=== PATIENT | male | born 1990 | race African-American/Black ===

== ENCOUNTER 2018-08-22 10:37 | Emergency (ER) | payer OTHER, SELFPAY ==
[2018-08-22 12:10] LABS: Bilirubin Negative (Negative); Blood, Urine Negative (Negative); Clarity CLEAR (Clear); Glucose, Urine (Dipstick) Negative (Negative); Leukocyte Small (Negative); Nitrite Negative (Negative); Protein, Urine (Dipstick) Trace mg/dL (Neg-Trace); Specific Gravity, Urine 1.021 (1.002-1.036)
[2018-08-22 12:12] LABS: Bacteria/HPF None Seen HPF (None Seen); Hyaline Casts/LPF 0-3 HYALINE CAST LPF (0-3 Hyaline); Pathc Cast-AUWi Flag 0.14 (0-2.49); Squamous Epithelial 0-3 HPF (0-3); WBC/HPF 0-3 HPF (0-3)
[2018-08-22 12:24] LABS: RBC/HPF 0-3 HPF (0-3)
[2018-08-22 12:28] LABS: #Eosinphils 0.1 thou/uL (0.0-0.7); #Lymphocytes 1.5 thou/uL (1.20-3.40); #Monocytes 0.7 thou/uL (0.11-0.59); #Neutrophils 6.9 thou/uL (1.40-6.50); %Basophils 0.5 % (0.0-1.0); %Eosinophils 0.7 % (0.0-10.0); %Monocytes 7.8 % (0.0-10.0); Hemoglobin 13.6 g/dL (14.0-18.0); Mean Corpuscular HGB CONC 32.5 g/dL (32.0-36.0); Mean Corpuscular Volume 86.4 fL (78.0-98.0); Mean Platelet Volume 6.9 fL (7.4-10.4); Platelet Count 300 thou/uL (130-400); Red Blood Cell (RBC) Count 4.85 mill/uL (4.70-6.10); White Blood Cell (WBC) Count 9.3 thou/uL (4.8-10.8)
[2018-08-22 12:48] LABS: ALT (SGPT) 28 U/L (8-55); AST (SGOT) 31 U/L (5-34); Alkaline Phosphatase 98 U/L (40-150); Anion Gap 12 mmol/L (10-20); BUN (Urea Nitrogen) 10 mg/dL (8.9-20.6); Bilirubin, Total 0.8 mg/dL (0.2-1.2); Calc. Creatinine Clearance 0 mL/min (70-130); Calcium 9.6 mg/dL (7.8-10.44); Carbon Dioxide 26 mmol/L (22-29); Chloride 103 mmol/L (98-107); Estimated GFR-MDRD Greater than 90; Glucose 108 mg/dL (70-105); Potassium 4.1 mmol/L (3.5-5.1); Sodium 137 mmol/L (136-145)
--- NOTE | 2018-08-22 15:01 | RAD ---
TWO VIEWS CHEST: Comparison: 04-14-17 History: Dyspnea. FINDINGS: Two views of the chest show normal sized cardiomediastinal silhouette. There is no evidence of consol idation, mass, or pleural effusion. The bones are unremarkable. IMPRESSION: No evidence of acute cardiopulmonary disease. POS: [facility]
== END 2018-08-22 14:21 | disposition home or self-care (01) ==
LOC: ERS 10:37
DX: A77.0 Spotted fever due to Rickettsia rickettsii (principal); J45.909 Unspecified asthma, uncomplicated; F17.210 Nicotine dependence, cigarettes, uncomplicated
CPT/HCPCS: 36415; 36416; 71046; 80053; 81003; 81015; 85025; 85652; 86140; 93005

== ENCOUNTER 2019-08-09 22:00 | Emergency (ER) | payer SELFPAY | END 2019-08-09 23:07 | disposition left against medical advice (07) | LOC: ERS 22:00 | DX: Z53.21 Procedure and treatment not carried out due to patient leaving prior to being seen by health care provider (principal) ==

== ENCOUNTER 2019-08-11 13:21 | Emergency (ER) | payer SELFPAY ==
[2019-08-11] MEDS ORDERED: Lidocaine 4% Cream 5 GM TUBE w/ Tegaderm ONE (14:24)
[2019-08-11] MEDS ORDERED: Lidocaine 1% (PF) 30 ML VIAL ONE (14:32)
[2019-08-11] MEDS ORDERED: Morphine 4 MG/ML VIAL ONE (15:05)
[2019-08-11] MEDS ORDERED: cefTRIAXone\\ROCEPHIN 1 GM VIAL ONE (15:59)
== END 2019-08-11 14:10 | disposition home or self-care (01) ==
LOC: ERS 13:21
DX: K61.0 Anal abscess (principal); J45.909 Unspecified asthma, uncomplicated; F17.210 Nicotine dependence, cigarettes, uncomplicated
CPT/HCPCS: 96372; 99283; J0696; J2001; J2270

== ENCOUNTER 2020-01-26 11:26 | Emergency (ER) | payer OTHER, SELFPAY ==
[~2020-01-26 11:26] MED LIST: Iopamidol-370 76% 500 ML 1 ML ONE
[2020-01-26] MEDS ORDERED: methylPREDNISolone Sod Succ/PF 125 MG/2 ML VIAL ONE (13:18)
[2020-01-26] MEDS ORDERED: Ketorolac Tromethamine 30 MG/ML VIAL ONE (13:18)
[2020-01-26 13:24] LABS: #Basophils 0.1 thou/uL (0.0-0.2); #Eosinphils 0.1 thou/uL (0.0-0.7); #Lymphocytes 2.3 thou/uL (1.20-3.40); #Monocytes 1.2 thou/uL (0.11-0.59); #Neutrophils 10.4 thou/uL (1.40-6.50); %Basophils 0.5 % (0.0-1.0); %Eosinophils 0.4 % (0.0-10.0); %Lymphocytes 16.7 % (21.0-51.0); %Monocytes 8.4 % (0.0-10.0); %Neutrophils 74.1 % (42.0-75.0); Mean Corpuscular HGB CONC 31.5 g/dL (32.0-36.0); Mean Corpuscular Volume 88.9 fL (78.0-98.0); Mean Platelet Volume 8.6 fL (7.4-10.4); Platelet Count 216 thou/uL (130-400); RBC Distribution Width 12.6 % (11.5-14.5); Red Blood Cell (RBC) Count 5.72 mill/uL (4.70-6.10)
[2020-01-26 13:47] LABS: ALT (SGPT) 13 U/L (8-55); AST (SGOT) 27 U/L (5-34); Albumin 4.5 g/dL (3.5-5.0); Alkaline Phosphatase 72 U/L (40-110); Anion Gap 15 mmol/L (10-20); BUN (Urea Nitrogen) 13 mg/dL (8.9-20.6); Bilirubin, Total 1.4 mg/dL (0.2-1.2); Calc. Creatinine Clearance 0 mL/min (70-130); Calcium 9.6 mg/dL (7.8-10.44); Carbon Dioxide 23 mmol/L (22-29); Chloride 98 mmol/L (98-107); Estimated GFR-MDRD 80; Globulin 4.6 g/dL (2.4-3.5); Glucose 93 mg/dL (70-105); Potassium 4.6 mmol/L (3.5-5.1); Protein, Total 9.1 g/dL (6.0-8.3); Sodium 131 mmol/L (136-145)
--- NOTE | 2020-01-26 14:00 | CT ---
CT neck soft tissues with contrast: 01/26/2020 HISTORY: 29-year-old male with sore throat FINDINGS: The cervical spine is essentially normal. No destructive osseous lesion. Bilateral tympanomastoid cav ities, and the sphenoid, ethmoid, and maxillary sinuses, are grossly clear. Diffuse enlargement of adenoids. Enlargement of bilateral faucial tonsils with tiger stripe pattern. No peritonsillar abscess identified. Diffuse mild fat stranding in the superficial subcutaneous fat a round the lower jaw. Numerous shotty cervical lymph nodes at levels 1A, 1B, and level 2. Additionally, asymmetrically greater enlargement of the left level 2A lymph node 2.5 x 1.5 x 2.5 cm. No retropharyngeal abscess. Other than mild edema, and the cervical lymphadenopathy, no additional significant abnormality is himanshu ntified involving the submandibular, sublingual, parotid, carotid, perivertebral, imaging science professor, parapharyngeal, and posterior cervical, spaces. Lung apices are grossly clear. Larynx is normal. No thyroid pathology identified. IMPRESSION: 1. Bilateral palatine tonsillitis.. 2. Hyperplasia of the adenoids. 3. Mild superficial soft tissue edema around the lower jaw, and nonspecific mild (probably reactive) cervical lymphadenopathy.
[2020-01-26 22:23] LABS: SARS-CoV-2 MS2 Positive; SARS-CoV-2 N Gene Negative; SARS-CoV-2 S Gene Negative; SARS-CoV-2 orf1ab Negative
== END 2020-01-26 15:02 | disposition home or self-care (01) ==
LOC: ERS 11:26
DX: J02.9 Acute pharyngitis, unspecified (principal); J45.909 Unspecified asthma, uncomplicated; F17.210 Nicotine dependence, cigarettes, uncomplicated; Z20.828 Contact with and (suspected) exposure to other viral communicable diseases
CPT/HCPCS: 70491; 80053; 85025; 87081; 87430; 87635; 96372; 96374; 96375; J1885; J2930; Q9967; U0003

== ENCOUNTER 2020-01-28 15:32 | Observation (INO) | payer SELFPAY ==
[~2020-01-28 15:32] MED LIST changes: +Iopamidol 370 76% 100 ML VIAL ONE; -Iopamidol-370 76% 500 ML 1 ML ONE
[2020-01-28] MEDS ORDERED: Acetaminophen 500 MG TAB ONE (16:08)
[2020-01-28] MEDS ORDERED: cefTRIAXone\\ROCEPHIN 2 GM VIAL ONE (16:08)
[2020-01-28] MEDS ORDERED: Ketorolac Tromethamine 30 MG/ML VIAL ONE (16:08)
[2020-01-28 16:39] LABS: MONO NEGATIVE CONTROL ZONE White (Negative) (White); MONO POSITIVE CONTROL Pink Line (Positive) (PINK/RED); Mononucleosis NEGATIVE (NEGATIVE)
--- NOTE | 2020-01-28 17:00 | CT ---
CT NECK SOFT TISSUES WITH CONTRAST: 01/28/2020 HISTORY: 29-year-old male with severe sore throat. COMPARISON: 01/26/2020 FINDINGS: The enlarged bilateral faucial tonsils, with tiger stripe pattern, consistent with tonsillitis, have become larger, such that now day contact each other at midline (kissing tonsils). No peritonsillar abscess identified. The previously described cervical lymphadenopathy is again demonstrated, including the largest left l evel 2A lymph node measuring approximately 2.5 x 1.5 x 2.5 cm, unchanged. There is no retropharyngeal abscess. Interval worsening of thickening and heterogeneous enhancement of lingual tonsil (base of tongue). Hy perplasia and enhancement of the adenoids is either unchanged or minimally worse. There has been no other interval change. Larynx is normal. IMPRESSION: 1.) Diffuse inflammatory or infectious process involving Waldeyer's ring (lingual tonsil, adenoids, a nd palatine tonsils) stenosis, has become worse, especially the palatine tonsillitis. 2) no abscess identified.
[2020-01-28] MEDS ORDERED: Clindamycin/D5W 900 mg/50 ml Premix Bag ONE (17:13)
[2020-01-28 17:31] LABS: #Basophils 0.1 thou/uL (0.0-0.2); #Eosinphils 0.1 thou/uL (0.0-0.7); #Lymphocytes 2.3 thou/uL (1.20-3.40); #Monocytes 1.4 thou/uL (0.11-0.59); #Neutrophils 6.3 thou/uL (1.40-6.50); %Basophils 0.6 % (0.0-1.0); %Eosinophils 0.5 % (0.0-10.0); %Lymphocytes 23.1 % (21.0-51.0); %Monocytes 13.5 % (0.0-10.0); %Neutrophils 62.3 % (42.0-75.0); Hemoglobin 15.1 g/dL (14.0-18.0); Mean Corpuscular Hemoglobin 28.1 pg (27.0-31.0); Mean Corpuscular Volume 87.7 fL (78.0-98.0); Mean Platelet Volume 8.6 fL (7.4-10.4); Platelet Count 222 thou/uL (130-400); RBC Distribution Width 12.5 % (11.5-14.5); Red Blood Cell (RBC) Count 5.39 mill/uL (4.70-6.10); White Blood Cell (WBC) Count 10.1 thou/uL (4.8-10.8)
[2020-01-28 17:34] LABS: ALT (SGPT) 11 U/L (8-55); AST (SGOT) 13 U/L (5-34); Albumin 4.1 g/dL (3.5-5.0); Alkaline Phosphatase 58 U/L (40-110); Anion Gap 10 mmol/L (10-20); BUN (Urea Nitrogen) 11 mg/dL (8.9-20.6); Bilirubin, Total 0.5 mg/dL (0.2-1.2); Calc. Creatinine Clearance 0 mL/min (70-130); Calcium 9.4 mg/dL (7.8-10.44); Carbon Dioxide 28 mmol/L (22-29); Chloride 101 mmol/L (98-107); Estimated GFR-MDRD Greater than 90; Globulin 3.7 g/dL (2.4-3.5); Glucose 78 mg/dL (70-105); Potassium 3.7 mmol/L (3.5-5.1); Protein, Total 7.8 g/dL (6.0-8.3); Sodium 135 mmol/L (136-145)
[2020-01-28] MEDS ORDERED: Acetaminophen 650 MG Suppository PR PRN (17:58)
[2020-01-28] MEDS ORDERED: Acetaminophen 325 MG TAB PO PRN (17:58)
--- NOTE | 2020-01-28 19:23 | HP ---
TIME OF ASSESSMENT: 1700 hours. CHIEF COMPLAINT: Sore throat, worsening despite on oral antibiotics. HISTORY OF PRESENT ILLNESS: Mr. Ivy is a 29-year-old gentleman, who presents with worsening pain in his throat due to known strep throat infection. The patient states he first began to feel unwell last Saturday on January 22. The patient waited to seek medical attention until 2 days ago on Saturday. He was given oral antibiotics, and states initially, he felt better, but since Saturday has had worsening pain and swelling with persistent sweats and low-grade temperatures at home. The patient states he has had frequent infections for the last 4 years. Reports having underlying asthma, and in the last year, has required his inhalers more frequently than normal. At present, he denies having any shortness of breath or chest pain. Denies any stridor. Denies any difficulty with swallowing, but states his oral intake has been reduced due to pain with swallowing. Since receiving analgesics in the emergency department, he states he is feeling much better in regard to the pain and would like to attempt to eat. He is otherwise without any complaints. PAST MEDICAL HISTORY: 1. Asthma. 2. Recurrent strep throat infections. PAST SURGICAL HISTORY: None. SOCIAL HISTORY: The patient lives with his family. He reports smoking a half a pack a day and reports occasional marijuana use. Denies any other drug use or any heavy alcohol consumption. FAMILY HISTORY: Noncontributory. ALLERGIES: NO KNOWN DRUG ALLERGIES. CURRENT MEDICATIONS: Ibuprofen 800 mg p.o. q.8 hours as needed for pain. PHYSICAL EXAMINATION: GENERAL: The patient appears well developed, well nourished, in no acute distress. He is resting comfortably on a stretcher. VITAL SIGNS: Temperature 99.1, pulse 79, blood pressure 122/75, respirations 17 , O2 saturation 96% on room air. HEENT: Normocephalic and atraumatic. Pupils are equal, round, and reactive to light. Scleral icterus. Oropharynx shows moist mucous membranes. Tonsils, slightly enlarged bilaterally with slight amount of erythema and exudates present bilaterally. No obstruction of airway. Voice, normal. No drooling. NECK: Cervical lymphadenopathy present. Trachea, midline. No nuchal rigidity. CARDIAC: Regular rate and rhythm. LUNGS: Notable for a couple of expiratory wheezes at the bilateral bases. No crackles. ABDOMEN: Soft, nontender, and nondistended. Normoactive bowel sounds present. No guarding or rigidity. No renal angle tenderness. EXTREMITIES: No lower leg swelling or edema. NEUROLOGIC: Alert and oriented x3. SKIN: Warm and dry. LABORATORY DATA: White blood count 10.1, hemoglobin 15.1, hematocrit 47.2, neutrophils 62.3, platelets 222. Sodium 135, potassium 3.7, BUN 11, creatinine 1.15, GFR greater than 90, glucose 78. Lactic acid 0.6. LFTs, unremarkable. [place] screen, negative. Throat swab, pending. IMAGING DATA: CT of the neck soft tissue demonstrated diffuse inflammatory or infectious process involving Waldeyer's ring. Stenosis has become more, especially at palatine tonsillitis. No abscess identified. IMPRESSION AND PLAN: Mr. Ivy is a very pleasant 29-year-old gentleman, who returns to the emergency department after failing outpatient treatment for infectious pharyngitis and is being admitted for management of the following. 1. Pharyngitis. Culture obtained. He was receiving oral PCN, with symptoms worsening and has developed low-grade temperatures with sweats. He has been started on IV antibiotics, which we will continue. Consultation has been placed to Dr. Moe of Infectious Disease. Per ED physician, consultation will be placed to ENT for the morning. He will continue low-dose steroids 4 mg p.o. q.i.d., to help with swelling. No evidence of airway compromise at this present time. We will continue IV fluids. 2. Asthma. The patient has occasional expiratory wheezes at the bilateral bases; therefore, we will restart his home inhalers and order p.r.n. DuoNeb. He is breathing comfortably at present without any complaints. 3. Gastrointestinal prophylaxis with famotidine. 4. Deep venous thrombosis prophylaxis with mechanical sequential compression devices. The patient is ambulatory. 5. Code status is full. Surrogate decision maker is his mother, Lurdes Ivy. Case was discussed with Dr. Peters, who agrees with plan of care as described above. Job ID: [id number] [facility]TD[facility]
--- NOTE | 2020-01-28 19:34 | PDOC.EVN ---
Event Note - Event Note Event Note: Chart reviewed. Pt seen. Discussed with KITTY Jessie Lopez. VSS Tonsillar enlargement, exudates. S1, S2, reg Lungs CTA 29 yo man dc from ER 2 days ago with penicillin for suspected strep grp A infection now presenting with worsening symptoms. Pt has been started on ceftriaxone, add clindamycin. ENT/ID consulted.
[2020-01-28] MEDS: Sodium Chloride 0.9% 1,000 ML IV SCH (20:13)
[2020-01-28] MEDS: Famotidine 20 MG TAB PO SCH (20:19)
[2020-01-28] MEDS: Dexamethasone 4 MG TAB PO SCH (20:19)
[2020-01-28 20:32] VITALS: BMI 22.4
[2020-01-29] MEDS: Clindamycin/D5W 900 MG in Premix Bag 1 BAG IVPB SCH ×3 (02:19→17:14)
[2020-01-29 04:59] LABS: #Lymphocytes 1.4 thou/uL (1.20-3.40); #Monocytes 0.7 thou/uL (0.11-0.59); #Neutrophils 6.3 thou/uL (1.40-6.50); %Basophils 0.1 % (0.0-1.0); %Eosinophils 0.1 % (0.0-10.0); %Lymphocytes 16.7 % (21.0-51.0); %Monocytes 8.6 % (0.0-10.0); %Neutrophils 74.5 % (42.0-75.0); Hemoglobin 14.3 g/dL (14.0-18.0); Mean Corpuscular HGB CONC 33.1 g/dL (32.0-36.0); Mean Corpuscular Hemoglobin 29.2 pg (27.0-31.0); Mean Corpuscular Volume 88.2 fL (78.0-98.0); Mean Platelet Volume 7.8 fL (7.4-10.4); Platelet Count 226 thou/uL (130-400); RBC Distribution Width 12.2 % (11.5-14.5); Red Blood Cell (RBC) Count 4.91 mill/uL (4.70-6.10); White Blood Cell (WBC) Count 8.5 thou/uL (4.8-10.8)
[2020-01-29 05:23] LABS: Anion Gap 10 mmol/L (10-20); BUN (Urea Nitrogen) 9 mg/dL (8.9-20.6); Calc. Creatinine Clearance 132 mL/min (70-130); Calcium 8.9 mg/dL (7.8-10.44); Carbon Dioxide 25 mmol/L (22-29); Chloride 106 mmol/L (98-107); Estimated GFR-MDRD Greater than 90; Glucose 105 mg/dL (70-105); Potassium 4.1 mmol/L (3.5-5.1); Sodium 137 mmol/L (136-145)
[2020-01-29] MEDS: Famotidine 20 MG TAB PO SCH ×2 (08:06→20:31)
[2020-01-29] MEDS: Dexamethasone 4 MG TAB PO SCH ×3 (08:07→17:14)
[2020-01-29] MEDS: Sodium Chloride 0.9% 1,000 ML IV SCH (12:12)
[2020-01-29] MEDS ORDERED: cefTRIAXone\\ROCEPHIN 2 GM in Sodium Chloride 0.9% 100 ML IVPB SCH (16:00)
--- NOTE | 2020-01-29 17:43 | CON ---
DATE OF CONSULTATION: 01/29/2020 REASON FOR CONSULTATION: Pharyngitis with recurrence. HISTORY OF PRESENT ILLNESS: A 29-year-old who has had recurrent episodes of pharyngitis, presumably due to group A Streptococcus for the past 2 or 3 years. Apparently, he has had diagnosis a tonsillitis and was considering removal of the tonsils and then he gets admitted again. At this time, there is a proven culture with group A strep and he has been receiving ceftriaxone and clindamycin with improvement. He is feeling better. There is no headaches or visual symptoms. Sore throat is improved. He is able to swallow. No cough, sputum production, or chest pain. No abdominal pain or diarrhea. No genitourinary symptoms. No joint symptoms. PAST MEDICAL HISTORY: Pharyngitis, recurrent. SOCIAL HISTORY: He smokes daily and uses marijuana intermittently. No cocaine or meth. No IV drug use. Lives with family in the area. Does not have a steady job. ALLERGIES: NONE. CURRENT MEDCATIONS: 1. Ceftriaxone. 2. Clindamycin. 3. Pepcid. FAMILY HISTORY: Noncontributory. PHYSICAL EXAMINATION: VITAL SIGNS: T-max 99.6, BP 120/70, and pulse 75. SKIN: Normal. The patient has cervical lymphadenopathy, bilateral submandibular. HEENT: Ocular movements conjugate. Oral cavity with evidence of tonsillar enlargement and abscesses in the crypts. Dental exam normal. NECK: Supple. LUNGS: Symmetric, clear breath sounds. HEART: Normal. ABDOMEN: Soft, not distended or tender. No ascites. No bladder distention. EXTREMITIES: No joint inflammatory activity. NEUROLOGIC: Nonfocal. LABORATORY DATA: [place] screen negative. White cell count is 10.1 and 8.5, fairly normal differential. Creatinine 0.99. Liver profile normal. Albumin 4.1. Positive group A strep culture from 01/25. ASSESSMENT: Refractory recurrent group A strep infections with tonsillitis. DISCUSSION: Most likely the patient has abscesses within the tonsils and will need to have them removed. Penicillin by itself has sometimes difficulty in eradication of group A strep in the tonsils. Part of it has to do with concomitant beta-lactamase producing organisms, so I would advise discharge planning with oral clindamycin for a total of 10 days and follow up with ENT. Check HIV and RPR before discharge. Job ID: [id number] [facility]
[2020-01-29 19:02] LABS: HIV (1/2) Antibody/Antigen Non-Reactive (NonReactive); HIV 1/2 INDEX 0.07 S/CO (<1.00)
--- NOTE | 2020-01-29 19:10 | PRG ---
DATE OF SERVICE: 01/29/2020 SUBJECTIVE: A 29-year-old male with recent diagnosis of strep throat, presented to the hospital with a sore throat. He is currently admitted with a diagnosis of acute tonsillitis. He was started on ceftriaxone along with clindamycin and Decadron. No fever or chills at this time. Symptomatically, he feels much better. REVIEW OF SYSTEMS: All other review of systems was reviewed and was found negative. PHYSICAL EXAMINATION: VITAL SIGNS: Temperature 99.6, pulse of 69, respirations of 14, blood pressure of 117/72, and O2 saturation 96% on room air. GENERAL: A 29-year-old male, in no apparent distress. LUNGS: Clear to auscultation bilaterally. No wheezing, rales, or rhonchi. HEART: S1 and S2 present. Regular rate and rhythm. No rubs or gallops. ABDOMEN: Soft and nontender. Bowel sounds present. No rebound or guarding. EXTREMITIES: No edema or calf tenderness. NEUROLOGIC: Grossly nonfocal. PSYCHIATRIC: Alert, awake, and oriented x3. IMAGING STUDIES: Telemetry monitoring showed sinus rhythm. LABORATORY FINDINGS: CBC showed WBC 8.5 with hemoglobin 14.3, hematocrit 43.3, and platelet of 226. [place] screen was negative. Recent group A Streptococcus culture came back positive. Soft tissue neck CT by my review showed diffuse inflammation. HEENT examination showed tonsillar exudate. IMPRESSION: 1. Group A strep infection with tonsillitis. 2. Mild intermittent asthma. 3. Hyponatremia. 4. Tobacco dependence. 5. Occasional cannabis abuse. PLAN: The patient will be transferred to medical floor. Steroids will be discontinued. We will continue IV antibiotics. We will await Infectious Disease input. The patient was counseled on lifestyle modification including tobacco cessation. We will discontinue IV fluids if tolerating p.o. Discharge planning. Job ID: [id number]
[2020-01-29 19:13] LABS: Syphilis Antibody Index 3.48 S/CO (<1.00 Non-Reactive)
[2020-01-29 21:18] LABS: Syphilis Antibody INDETERMINATE (Nonreactive)
[2020-01-30] MEDS: Clindamycin/D5W 900 MG in Premix Bag 1 BAG IVPB SCH ×2 (00:22→08:21)
[2020-01-30 08:21] VITALS: BP 120/69; TEMP 97.8
[2020-01-30] MEDS: Famotidine 20 MG TAB PO SCH (08:21)
--- NOTE | 2020-01-30 18:43 | DIS ---
DATE OF ADMISSION: 01/28/2020 DATE OF DISCHARGE: 01/30/2020 DISCHARGE DIAGNOSES: 1. Group A Streptococcus pharyngitis/tonsillitis. 2. Tobacco use. 3. Hyponatremia, mild, resolved. 4. Cannabis use, intermittent. CONSULTATIONS: Dr. Wesley Moe with Infectious Disease Service. PERTINENT LABORATORY AND X-RAY FINDINGS: Sodium ranged between 135 to 137. CBC showed white blood cell count ranging between 8.5 to 10.1. RPR titer nonreactive. Syphilis IgG/IgM antibody indeterminate. Treponema pallidum particle agglutinin pending. Monospot negative. HIV-1 and HIV-2 antigen and antibody, 01/29/2020, nonreactive. Group A streptococcal culture on 01/26/[address] of the soft tissues of the neck dated 01/28/2020 showed diffuse inflammatory process involving the lingual tonsil, adenoids, and palatine tonsils. No abscess noted. HOSPITAL COURSE: The patient was initially admitted after presenting with increased throat pain with associated low-grade temperatures and night sweats. The patient underwent general evaluation including throat culture positive for group A Streptococcus. The patient was initially placed on broad-spectrum IV antibiotic therapy in addition to Decadron. The patient was evaluated by the Infectious Disease Service with recommendations for oral clindamycin for 10 days after discharge. The patient was also recommended for outpatient ENT followup for consideration of tonsillectomy. Overall, the patient did remain clinically stable and clinically improved with IV antibiotic therapy. I have examined the patient at the time of discharge and discussed followup instructions. The patient verbalizes understanding and in agreement, ready for discharge on 01/30/2020. DISCHARGE MEDICATIONS: Clindamycin 300 mg p.o. q.6 hours x10 days. FOLLOWUP: The patient to establish with [facility] for PCP. The patient will follow up with Dr. Akbar Panda with ENT Service. The patient may follow up with Dr. Wesley Moe with Infectious Disease Service. CONDITION ON DISCHARGE: Stable. ACTIVITY: Ad-amanda. DIET: Regular. CODE STATUS: Full. DISPOSITION: Home on 01/30/2020. TIME SPENT: Total time in preparing and coordinating discharge, 31 minutes. Job ID: [id number]
== END 2020-01-30 09:57 | disposition home or self-care (01) ==
LOC: ERS 15:32 → 2NO 17:43 → ONC 01-29 18:43
PROVIDERS: ADMIT Internal Medicine; ATTEND Internal Medicine
DX: J02.0 Streptococcal pharyngitis (principal); B95.0 Streptococcus, group A, as the cause of diseases classified elsewhere; E87.1 Hypo-osmolality and hyponatremia; J45.20 Mild intermittent asthma, uncomplicated; F17.210 Nicotine dependence, cigarettes, uncomplicated; Z79.2 Long term (current) use of antibiotics
CPT/HCPCS: 36415; 70491; 80048; 80053; 83605; 85025; 86308; 86593; 86780; 87081; 87389; 87430; 96365; 96366; 96367; 96375; 96376; G0378; J0696; J1885; J3490; J8540; Q9967

== ENCOUNTER 2020-06-27 07:43 | Emergency (ER) | payer OTHER, SELFPAY ==
[2020-06-27] MEDS ORDERED: Ibuprofen 200 MG TAB ONE (08:17)
[2020-06-28 12:10] LABS: SARS-CoV-2 MS2 Positive; SARS-CoV-2 N Gene Negative; SARS-CoV-2 S Gene Negative; SARS-CoV-2 by NAA Not Detected (NotDetected); SARS-CoV-2 orf1ab Negative
== END 2020-06-27 09:25 | disposition home or self-care (01) ==
LOC: ERS 07:43
DX: J06.9 Acute upper respiratory infection, unspecified (principal); Z20.828 Contact with and (suspected) exposure to other viral communicable diseases; F17.210 Nicotine dependence, cigarettes, uncomplicated
CPT/HCPCS: 87635; 87804; 99283; U0003

== ENCOUNTER 2021-01-17 15:46 | Emergency (ER) | payer SELFPAY ==
[~2021-01-17 15:46] MED LIST changes: -Iopamidol 370 76% 100 ML VIAL ONE; +Iopamidol-370 76% 500 ML 1 ML ONE
[2021-01-17 16:15] LABS: #Basophils 0.1 thou/uL (0.0-0.2); #Eosinphils 0.6 thou/uL (0.0-0.7); #Lymphocytes 3.1 thou/uL (1.20-3.40); %Basophils 0.7 % (0.0-1.0); %Eosinophils 4.3 % (0.0-10.0); %Lymphocytes 22.3 % (21.0-51.0); %Monocytes 7.1 % (0.0-10.0); %Neutrophils 65.5 % (42.0-75.0); Hemoglobin 14.2 g/dL (14.0-18.0); Mean Corpuscular HGB CONC 31.4 g/dL (32.0-36.0); Mean Corpuscular Hemoglobin 28.5 pg (27.0-31.0); Mean Corpuscular Volume 90.5 fL (78.0-98.0); Mean Platelet Volume 6.9 fL (7.4-10.4); Platelet Count 287 thou/uL (130-400); RBC Distribution Width 12.2 % (11.5-14.5); Red Blood Cell (RBC) Count 4.97 mill/uL (4.70-6.10); White Blood Cell (WBC) Count 13.7 thou/uL (4.8-10.8)
[2021-01-17] MEDS ORDERED: Dexamethasone 10 MG/ML VIAL ONE (16:36)
[2021-01-17] MEDS ORDERED: Ondansetron PF 4 MG/2 ML Vial ONE (16:36)
[2021-01-17] MEDS ORDERED: Morphine 4 MG/ML VIAL ONE (16:36)
[2021-01-17 16:39] LABS: ALT (SGPT) 9 U/L (8-55); AST (SGOT) 14 U/L (5-34); Alkaline Phosphatase 61 U/L (40-110); Anion Gap 13 mmol/L (10-20); BUN (Urea Nitrogen) 10 mg/dL (8.9-20.6); Bilirubin, Total 0.7 mg/dL (0.2-1.2); Calc. Creatinine Clearance 0 mL/min (70-130); Calcium 9.8 mg/dL (7.8-10.44); Carbon Dioxide 28 mmol/L (22-29); Chloride 104 mmol/L (98-107); Globulin 3.7 g/dL (2.4-3.5); Glucose 92 mg/dL (70-105); Potassium 3.8 mmol/L (3.5-5.1); Protein, Total 7.7 g/dL (6.0-8.3); Sodium 141 mmol/L (136-145)
[2021-01-17] MEDS ORDERED: Clindamycin/D5W 900 mg/50 ml Premix Bag ONE (16:46)
== END 2021-01-17 19:25 | disposition home or self-care (01) ==
LOC: ERS 15:46
DX: J36 Peritonsillar abscess (principal); J45.909 Unspecified asthma, uncomplicated; F17.210 Nicotine dependence, cigarettes, uncomplicated
CPT/HCPCS: 36415; 70491; 80053; 85025; 87081; 87430; 96365; 96375; J1100; J2270; J2405; J3490; Q9967

== ENCOUNTER 2025-02-20 20:56 | Emergency (ER) | payer SELFPAY ==
[~2025-02-20 20:56] MED LIST changes: -Iopamidol-370 76% 500 ML 1 ML ONE; +Iopamidol-370 76% 500 ML MDV (1 ML CHARGE) ONE
[2025-02-20] MEDS ORDERED: Acetaminophen 500 MG TAB ONE (21:19)
[2025-02-20] MEDS ORDERED: Ondansetron PF 4 MG/2 ML Vial ONE (21:20)
[2025-02-20] MEDS ORDERED: Morphine 4 MG/ML VIAL ONE (21:20)
[2025-02-20] MEDS ORDERED: Dicyclomine 20 MG TAB ONE (21:20)
[2025-02-20 21:44] LABS: #Basophils Less than 0.03 10x3/uL (0.0-0.2); #Monocytes 0.76 10x3/uL (0.11-0.59); #Neutrophils 8.93 10x3/uL (1.40-6.50); %Basophils 0.2 % (0.0-1.0); %Eosinophils 0.8 % (0.0-10.0); %Lymphocytes 16.6 % (21.0-51.0); %Monocytes 6.4 % (0.0-10.0); %Neutrophils 75.6 % (42.0-75.0); Hematocrit 44.6 % (42.0-52.0); Hemoglobin 14.3 g/dL (14.0-18.0); Mean Corpuscular HGB CONC 32.1 g/dL (32.0-36.0); Mean Corpuscular Hemoglobin 27.2 pg (27.0-31.0); Mean Corpuscular Volume 84.8 fL (78.0-98.0); Mean Platelet Volume 9.3 fL (7.4-10.4); Platelet Count 207 10x3/uL (130-400); RBC Distribution Width 14.2 % (11.5-14.5); Red Blood Cell (RBC) Count 5.26 mill/uL (4.70-6.10); White Blood Cell (WBC) Count 11.82 10x3/uL (4.8-10.8)
[2025-02-20 22:03] LABS: ALT (SGPT) 10 U/L (Less than 45); AST (SGOT) 27 U/L (11-34); Albumin 3.8 g/dL (3.1-4.5); Alkaline Phosphatase 60 U/L (40-110); Anion Gap 12 mmol/L (10-20); BUN (Urea Nitrogen) 11 mg/dL (8.9-20.6); Bilirubin, Total 0.5 mg/dL (0.3-1.2); Calc. Creatinine Clearance 0 mL/min (70-130); Calcium 9.4 mg/dL (7.8-10.44); Carbon Dioxide 26 mmol/L (22-29); Chloride 101 mmol/L (98-107); Estimated GFR 66; Globulin 3.7 g/dL (2.4-3.5); Glucose 112 mg/dL (70-105); Lipase 13 U/L (8-78); Magnesium 1.7 mg/dL (1.6-2.6); Potassium 3.5 mmol/L (3.5-5.1); Protein, Total 7.5 g/dL (6.0-8.3); Sodium 135 mmol/L (136-145)
== END 2025-02-20 23:30 | disposition home or self-care (01) ==
LOC: ERS 20:56
DX: K52.9 Noninfective gastroenteritis and colitis, unspecified (principal); J45.909 Unspecified asthma, uncomplicated; F17.210 Nicotine dependence, cigarettes, uncomplicated
CPT/HCPCS: 74177; 80053; 83690; 83735; 85025; 96374; 96375; J2270; J2405; Q9967